=== PATIENT | male | born 1970 | race Caucasian/White ===

== ENCOUNTER → 2017-05-21 | Outpatient (CLI) | payer OTHER ==
[~2017-05-21] MED LIST: PERCOCET 325 MG1 TA2 PO
== END ==
LOC: BHSO 09:59
DX: F33.2 Major depressive disorder, recurrent severe without psychotic features (principal)

== ENCOUNTER → 2017-06-01 | Outpatient (CLI) | payer OTHER | LOC: BHSO 13:59 | DX: F34.1 Dysthymic disorder (principal) ==

== ENCOUNTER → 2017-06-18 | Outpatient (CLI) | payer OTHER | LOC: BHSO 10:01 | DX: F33.1 Major depressive disorder, recurrent, moderate (principal) ==

== ENCOUNTER → 2017-07-02 | Outpatient (CLI) | payer OTHER | LOC: BHSO 10:01 | DX: F33.1 Major depressive disorder, recurrent, moderate (principal) ==

== ENCOUNTER → 2017-08-03 | Outpatient (CLI) | payer OTHER | LOC: BHSO 09:02 | DX: F33.2 Major depressive disorder, recurrent severe without psychotic features (principal) ==

== ENCOUNTER → 2017-08-20 | Outpatient (CLI) | payer OTHER | LOC: BHSO 10:55 | DX: F33.2 Major depressive disorder, recurrent severe without psychotic features (principal) ==

== ENCOUNTER → 2017-09-17 | Outpatient (CLI) | payer OTHER | LOC: BHSO 11:10 | DX: F33.1 Major depressive disorder, recurrent, moderate (principal) ==

== ENCOUNTER → 2019-04-22 | Outpatient (CLI) | payer OTHER | LOC: BHSO 13:02 | DX: F34.1 Dysthymic disorder (principal) ==

== ENCOUNTER → 2019-05-07 | Outpatient (CLI) | payer OTHER | LOC: BHSO 13:01 | DX: F34.1 Dysthymic disorder (principal) ==

== ENCOUNTER → 2019-05-29 | Outpatient (CLI) | payer BC | LOC: BHSO 15:59 | DX: F34.1 Dysthymic disorder (principal) ==

== ENCOUNTER → 2020-02-25 | Outpatient (CLI) | payer BC | LOC: COL.RAD 10:56 | DX: J84.10 Pulmonary fibrosis, unspecified (principal); D73.89 Other diseases of spleen; R91.1 Solitary pulmonary nodule | CPT/HCPCS: Q9967 ==

== ENCOUNTER 2021-07-25 12:50 | Outpatient (CLI) | payer BC ==
[2021-07-25] VITALS (8 sets, daily range): BP systolic 13–127; BP diastolic 75–90; PULSE 63–72; TEMP 98.1
[2021-07-25] MEDS ORDERED: CYMBALTA 60MG60 MG PO (13:37)
== END 2021-07-25 15:15 | disposition home or self-care (01) ==
LOC: EUO 12:50
DX: U07.1 COVID-19 (principal)
CPT/HCPCS: M0245

== ENCOUNTER 2024-06-03 19:14 | Emergency (ER) | payer BC ==
[~2024-06-03] VITALS: Ht 188 cm; Wt 113.6 kg
[~2024-06-03 19:14] MED LIST changes: +CYMBALTA 60MG60 MG PO
[2024-06-03 19:25] VITALS: TEMP 98.4
[2024-06-03] MEDS ORDERED: NS 1,000 ML IV ONE (20:15)
[2024-06-03] MEDS ORDERED: Ketorolac 30 MG/ML VIAL IV ONE (20:15)
[2024-06-03] MEDS ORDERED: Cyclobenzaprine 10 MG TAB PO ONE (20:30)
[2024-06-03 20:49] LABS: COLLECTION METHOD CLEAN CATCH
[2024-06-03 20:52] LABS: BASO # 0.1 K/mm3 (0.0-0.2); BASO % 1.1 % (0.0-2.0); EOS # 0.1 K/mm3 (0.0-0.7); GRAN # 6.3 K/mm3 (1.4-6.5); GRAN % 62.4 % (42.2-75.2); HEMATOCRIT 44.6 % (42.0-52.0); LYMPH # 2.8 K/mm3 (1.2-3.4); LYMPH % 27.7 % (20.0-51.0); MEAN CELL VOLUME 89 fl (80.0-100.0); MEAN CORPUSCULAR HEMOGLOBIN 32 pg (27-31); MEAN CORPUSCULAR HGB CONC 36 g/dl (33.0-37.0); MEAN PLATELET VOLUME 9.6 fl (7.4-10.4); MONO # 0.8 K/mm3 (0.1-0.6); MONO % 7.6 % (1.7-9.3); PLATELET COUNT 271 K/mm3 (130-400); RED BLOOD COUNT 5.03 M/mm3 (4.20-5.60); REDCELL DISTRIBUTION WIDTH-CV 12.7 % (11.5-14.5)
[2024-06-03 20:54] LABS: PH 5.5 (5.0-8.5); URINE APPEARANCE CLEAR (CLEAR/HAZY); URINE BLOOD NEGATIVE (NEGATIVE); URINE COLOR YELLOW (YELLOW); URINE GLUCOSE NEGATIVE (NEGATIVE); URINE KETONE TRACE (NEGATIVE); URINE NITRATE NEGATIVE (NEGATIVE); URINE PROTEIN(semi-quant) NEGATIVE (NEGATIVE)
[2024-06-03 21:10] LABS: ALBUMIN 4.1 g/dL (3.5-5.0); BILIRUBIN,TOTAL 0.6 mg/dL (0.2-1.2); CALCIUM 9.4 mg/dL (8.4-10.2); CREATININE, serum 1.03 mg/dL (0.72-1.25); POTASSIUM 3.9 mEq/L (3.5-4.5); TOTAL PROTEIN 7.6 g/dl (6.2-8.1)
[2024-06-03] MEDS ORDERED: MOBIC 7.5MG7.5 MG PO (21:32)
[2024-06-03] MEDS ORDERED: FLEXERIL 1010 MG/TAB PO (21:32)
[2024-06-03 21:56] VITALS: BP 126/82; PULSE 69
== END 2024-06-03 21:56 | disposition home or self-care (01) ==
LOC: COL.ER 19:14
PROVIDERS: Nurse Practitioner Primary Care
DX: M62.830 Muscle spasm of back (principal)
CPT/HCPCS: J1885; J7030